=== PATIENT | female | born 1965 | race Caucasian/White ===

== ENCOUNTER → 2016-10-31 | Outpatient (CLI) | payer OTHER | LOC: EMI 14:30 | DX: G43.909 Migraine, unspecified, not intractable, without status migrainosus (principal) | CPT/HCPCS: 70551 ==

== ENCOUNTER → 2020-07-10 | Outpatient (CLI) | payer OTHER ==
[2020-07-11 08:12] LABS: RHEUMATOID ARTHRITIS FACTOR <10.0 IU/mL (0.0-13.9)
[2020-07-11 09:12] LABS: VITAMIN D, 25-HYDROXY 34.7 ng/mL (30.0-100.0)
[2020-07-11 14:13] LABS: ANGIOTENSIN-CONVERTING ENZYME 28 U/L (14-82)
[2020-07-12 00:08] LABS: CCP ANTIBODIES IGG/IGA 7 units (0-19)
== END ==
LOC: LAB 11:04
PROVIDERS: Internal Medicine
DX: D89.89 Other specified disorders involving the immune mechanism, not elsewhere classified (principal); M25.50 Pain in unspecified joint; R76.0 Raised antibody titer; M79.10 Myalgia, unspecified site; E55.9 Vitamin D deficiency, unspecified
CPT/HCPCS: 36415; 82164; 82550; 82728; 83520; 85652; 86140; 86200; 86431

== ENCOUNTER → 2020-09-05 | Outpatient (CLI) | payer OTHER | LOC: LAB 11:06 | DX: R76.0 Raised antibody titer (principal); R21 Rash and other nonspecific skin eruption | CPT/HCPCS: 36415; 81001; 82570; 84156 ==

== ENCOUNTER → 2020-10-08 | Outpatient (CLI) | payer OTHER ==
[2020-10-09 09:14] LABS: VITAMIN D, 25-HYDROXY 31.1 ng/mL (30.0-100.0)
[2020-10-09 12:14] LABS: RHEUMATOID ARTHRITIS FACTOR <10.0 IU/mL (0.0-13.9)
[2020-10-09 15:14] LABS: ANGIOTENSIN-CONVERTING ENZYME 21 U/L (14-82)
[2020-10-09 17:09] LABS: ENDOMYSIAL ANTIBODY IGA Negative (Negative); IMMUNOGLOBULIN A, QN, SERUM 170 mg/dL (87-352); T-TRANSGLUTAMINASE (TTG) IGA <2 U/mL (0-3); T-TRANSGLUTAMINASE (TTG) IGG 5 U/mL (0-5)
[2020-10-11 01:07] LABS: CCP ANTIBODIES IGG/IGA 4 units (0-19)
[2020-10-20 12:07] LABS: ANTI-EJ AB (RDL) Negative (Negative); ANTI-JO-1 AB (RDL) <20 Units (<20); ANTI-KU AB (RDL) Negative (Negative); ANTI-MDA-5 AB (CADM-140)(RDL) <20 Units (<20); ANTI-MI-2 AB (RDL) Negative (Negative); ANTI-NXP-2 (P140) AB (RDL) <20 Units (<20); ANTI-OJ AB (RDL) Negative (Negative); ANTI-PL-12 AB (RDL) Negative (Negative); ANTI-PL-7 AB (RDL) Negative (Negative); ANTI-PM/SCL-100 AB (RDL) <20 Units (<20); ANTI-SRP AB (RDL) Negative (Negative); ANTI-TIF-1GAMMA AB (RDL) <20 Units (<20); ANTI-U1 RNP AB (RDL) <20 Units (<20); ANTI-U2 RNP AB (RDL) Negative (Negative); ANTI-U3 RNP (FIBRILLARIN)(RDL) Negative (Negative)
== END ==
LOC: LAB 08:57
PROVIDERS: Internal Medicine
DX: M25.50 Pain in unspecified joint (principal); M79.10 Myalgia, unspecified site; E55.9 Vitamin D deficiency, unspecified; R76.8 Other specified abnormal immunological findings in serum; D89.89 Other specified disorders involving the immune mechanism, not elsewhere classified; R76.0 Raised antibody titer
CPT/HCPCS: 36415; 82164; 82550; 82728; 82784; 83516; 83520; 85652; 86140; 86200; 86235; 86431

== ENCOUNTER 2020-11-04 15:53 | Emergency (ER) | payer OTHER | END 2020-11-04 16:54 | disposition home or self-care (01) | LOC: ER1 15:53 | DX: H00.021 Hordeolum internum right upper eyelid (principal) | CPT/HCPCS: 99283 ==